=== PATIENT | male | born 1940 | race Caucasian/White ===

== ENCOUNTER → 2017-04-08 | Outpatient (CLI) | payer OTHER ==
--- NOTE | 2017-04-08 11:53 | RAD ---
DATE: 04/08/2017. EXAM: DIGITAL DIAGNOSTIC BILATERAL, ULTRASOUND BREAST RIGHT. HISTORY: Palpable focus inferomedially on the right. COMPARISON: This is the baseline study. This study was interpreted with the benefit of Computerized Aided Detection (CAD). FINDINGS: The breast parenchyma is primarily fatty replaced. Breast parenchyma level density A. At the marked site of palpable concern inferomedially on the right, there is a minimal immediately subcutaneous density suggesting ecchymosis or facet process. There is no suspicious mammographic finding. On today's sonography, there are 2 hyperechoic immediately subcutaneous foci at the site of palpable concern at the 2:00 and 4:00 positions 3.5 cm from the nipple. These measure 1.8 x 1.6 x 0.9 cm and 1.2 x 1.2 x 0.6 cm, respectively. There is some adjacent vascularity. There are low and circumscribed. There is no suspicious sonographic finding. This is most consistent with ecchymosis or fat necrosis. Elsewhere, there is mild bilateral gynecomastia. Scattered skin calcifications are benign. BI-RADS CATEGORY: 3 PROBABLY BENIGN FINDING(S)-SHORT INTERVAL FOLLOW-UP SUGGESTED. RECOMMENDED FOLLOW-UP: CLIN FOLLOW UP IMAGING CLINICALLY INDICATED. The palpable foci medially on the right are most consistent with ecchymosis or fat necrosis and benignity is strongly favored. Correlate for a history of trauma at this site. Recommend ongoing clinical follow-up of the palpable finding to resolution or stability. Follow-up sonography can be performed in 3 months if they are unstable. Mammography is a sensitive method for finding small breast cancers, but it does not detect them all and is not a substitute for careful clinical examination. A negative mammogram does not negate a clinically suspicious finding and should not result in delay in biopsying a clinically suspicious abnormality. "Our facility is accredited by the [employer] Mammography Program."
== END | disposition home or self-care (01) ==
LOC: MAMMO 09:58
PROVIDERS: ATTEND Physician Assistant Medical
DX: N63.14 Unspecified lump in the right breast, lower inner quadrant (principal)
CPT/HCPCS: 76641; 77066